=== PATIENT | male | born 1960 | race Hispanic/Latino ===

== ENCOUNTER → 2017-11-27 | Day surgery (SDC) | payer OTHER ==
[~2017-11-27] MED LIST: APRISO0.375 GM PO; CEFTRIAXONE SOD 1 GM VIAL ONE; DEXAMETHASONE SOD PHOS INJ 4 MG/ML VIAL ONE; FENTANYL CITRATE/PF 100MCG/2 ML INJ ONE; IOPAMIDOL 610MG/1ML 300 MG/ML VIAL IV ONE; KETOROLAC TROMETHAMINE 30 MG/ML VIAL ONE; LIDOCAINE HCL 2% LOCAL INJ 5 ML SDV VIAL INJ ONE; MIDAZOLAM HCL 2 MG/2 ML VIAL ONE; ONDANSETRON HCL INJ 2 MG/ML VIAL ONE; PROPOFOL IV EMULSION 10 MG/ML 20 ML VIAL ONE; SEVOFLURANE INHAL SOLN 250 ML PEN BTL ONE
--- NOTE | 2017-11-30 09:50 | Operative Report ---
DATE OF PROCEDURE: November 27, 2017 PREOPERATIVE DIAGNOSIS: Gross hematuria. POSTOPERATIVE DIAGNOSIS: Gross hematuria. PROCEDURES 1. Cystourethroscopy with left ureteral catheterization and left retrograde pyelogram. 2. Cystourethroscopy with right ureteral catheterization and right retrograde pyelogram. 3. Supervision of fluoroscopy. 4. Interpretation of retrograde pyelography. ANESTHESIA: General. ESTIMATED BLOOD LOSS: Minimal. COMPLICATIONS: None. INDICATIONS FOR PROCEDURE: Mr. Santiago is a 57-year-old male with a history of hematuria. He and I had a long discussion about alternatives, risks and benefits including doing nothing, cystoscopy with IVP, retrograde pyelogram, and renal ultrasound. He voiced understanding of the options, alternatives, risks, and benefits and elected to proceed. PROCEDURE IN DETAIL: After informed consent was obtained, the patient was taken to the operative suite and placed supine on the table, and underwent general anesthesia by the anesthesia service. He was then placed in the dorsal lithotomy position and sterilely prepped and draped in the standard fashion for cystoscopy. A flexible cystoscope was inserted per urethra. Normal urethra was noted. There was trilobar prostatic hypertrophy. It was advanced to the bladder with moderate degree of trabeculation. No tumors. No stones. Both ureteral orifices were catheterized with a 5-Georgian open-ended catheter, and retrograde pyelograms were performed, which were normal. The bladder was drained. The patient was awakened from anesthesia and transported to the recovery room in excellent condition. SUPERVISION OF FLUOROSCOPY, INTERPRETATION OF RETROGRADE URETERAL PYELOGRAPHY: I was present throughout the entire procedure and I supervised the use of fluoroscopy as there was no radiologist present at any time during this procedure. Attention was turned toward the left and right ureteral orifices, catheterized with a 5-Georgian open-ended catheter. Retrograde pyelograms were performed revealing delicate ureters, delicate pelviceal systems. No evidence of filling defects. No evidence of hydronephrosis. IMPRESSION: Normal retrograde pyelograms. Job#: [id number] JESUS
== END | disposition home or self-care (01) ==
LOC: OR 05:11
PROVIDERS: ATTEND Urology
DX: R31.0 Gross hematuria (principal); N40.0 Benign prostatic hyperplasia without lower urinary tract symptoms; N32.89 Other specified disorders of bladder; E78.5 Hyperlipidemia, unspecified; K50.90 Crohn's disease, unspecified, without complications; R00.1 Bradycardia, unspecified; Z01.810 Encounter for preprocedural cardiovascular examination
CPT/HCPCS: 52005; 74420; 93005; J0696; J1100; J1885; J2001; J2250; J2405; Q9967